=== PATIENT | male | born 1955 ===

== ENCOUNTER 2023-12-25 18:27 | Emergency (ER) | payer MEDICARE ==
[2023-12-25] MEDS: Ketorolac 30 MG/ML SDV IM ONE (19:23)
[2023-12-25] MEDS: Take Home: traMADol 50 MG, 4 Tab Pack PO ONE (21:32)
[2023-12-25] MEDS: Acetaminophen 325 MG Tab PO ONE (21:33)
== END 2023-12-25 21:48 | disposition home or self-care (01) ==
LOC: DL.ED 18:27
DX: M25.532 Pain in left wrist (principal); M79.632 Pain in left forearm; F17.210 Nicotine dependence, cigarettes, uncomplicated; Z79.899 Other long term (current) drug therapy; Z88.2 Allergy status to sulfonamides
CPT/HCPCS: 73090-LT; 73110-LT; 73130-LT; 96372; 99283; A9270-GY; J1885